=== PATIENT | male | born 1970 ===

== ENCOUNTER 2020-12-30 17:04 | Emergency (ER) | payer SELFPAY ==
[~2020-12-30] VITALS: Ht 172.7 cm; Wt 75.4 kg
[2020-12-30 17:17] VITALS: BP 115/85
--- NOTE | 2020-12-30 18:29 | NUR ---
[id number]
--- NOTE | 2020-12-30 19:35 | NUR ---
PT NOT IN LOBBY FOR VS LYDIA
--- NOTE | 2020-12-30 19:52 | NUR ---
PT NOT IN LOBBY FOR VS LYDIA
== END 2020-12-30 19:55 | disposition left against medical advice (07) ==
LOC: ED 19:45
DX: R68.84 Jaw pain (principal); Z53.21 Procedure and treatment not carried out due to patient leaving prior to being seen by health care provider